=== PATIENT | male | born 1990 ===

== ENCOUNTER 2021-10-17 07:29 | Emergency (ER) | payer SELFPAY ==
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
[2021-10-17 09:04] LABS: Basophils % (Auto) 0.8 % (0.0-1.8); Eosinophils % (Auto) 0.9 % (0.0-4.3); Hematocrit 47.2 % (35.5-45.6); Hemoglobin 16.2 gm/dl (11.8-15.2); Lymphocytes # (Auto) 1.9 K/mm3 (1.2-5.4); Lymphocytes % (Auto) 39.9 % (13.4-35.0); Mean Corpuscular HGB Conc 34 % (32-34); Mean Corpuscular Volume 93 fl (84-94); Monocytes # (Auto) 0.3 K/mm3 (0.0-0.8); Monocytes % (Auto) 7.3 % (0.0-7.3); Platelet Count 177 K/mm3 (140-440); Red Blood Count 5.09 M/mm3 (3.65-5.03); Red Cell Distribution Width 13.2 % (13.2-15.2)
--- NOTE | 2021-10-17 09:18 | XRay Report ---
CHEST 2 VIEWS INDICATION / CLINICAL INFORMATION: cp. COMPARISON: None available. FINDINGS: SUPPORT DEVICES: None. HEART / MEDIASTINUM: No significant abnormality. LUNGS / PLEURA: No significant pulmonary or pleural abnormality. No pneumothorax. ADDITIONAL FINDINGS: No significant additional findings. IMPRESSION: 1. No acute findings. Signer Name: Morales Bhandari Jr, MD Signed: 10/17/2021 9:14 AM Workstation Name: [id number]
[2021-10-17 09:25] LABS: Alanine Aminotransferase 20 units/L (7-56); Albumin 4.7 g/dL (3.9-5); Blood Urea Nitrogen 13 mg/dL (9-20); Calcium 8.9 mg/dL (8.4-10.2); Hemolysis Index 8
[2021-10-17 09:26] LABS: BUN/Creatinine Ratio 22
[2021-10-17 10:47] VITALS: BP 110/64
--- NOTE | 2021-10-18 18:25 | Electrocardiograph Report ---
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
== END 2021-10-17 10:47 | disposition home or self-care (01) ==
LOC: ED 07:29
DX: R42 Dizziness and giddiness (principal); F12.90 Cannabis use, unspecified, uncomplicated; Z90.49 Acquired absence of other specified parts of digestive tract; Z79.899 Other long term (current) drug therapy
CPT/HCPCS: 36415; 71046; 80053; 84484; 85025; 93005; 99283

== ENCOUNTER 2021-10-22 16:54 | Emergency (ER) | payer SELFPAY ==
[2021-10-22 17:22] VITALS: BP 126/59
== END 2021-10-23 01:00 | disposition left against medical advice (07) ==
LOC: ED 16:54
DX: R06.00 Dyspnea, unspecified (principal); M54.9 Dorsalgia, unspecified; Z53.21 Procedure and treatment not carried out due to patient leaving prior to being seen by health care provider

== ENCOUNTER 2021-10-31 22:39 | Emergency (ER) | payer SELFPAY ==
[2021-11-01 08:58] LABS: Amphetamine Screen,Urine Negative; Benzodiazepines Screen,Urine Negative; Cocaine Screen,Urine Negative; Methadone Screen,Urine Negative; Opiate Screen,Urine Negative
[2021-11-01] MEDS ORDERED: hydrOXYzine PAMOATE 25 MG CAP PO ONE (09:41)
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
[2021-11-01 09:44] LABS: Cannabinoid Screen,Urine Positive
[2021-11-01 10:08] VITALS: BP 123/64
--- NOTE | 2021-11-02 21:49 | Electrocardiograph Report ---
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
== END 2021-11-01 10:19 | disposition home or self-care (01) ==
LOC: ED 22:39
DX: F41.9 Anxiety disorder, unspecified (principal); Z90.49 Acquired absence of other specified parts of digestive tract; Z98.890 Other specified postprocedural states; Z79.899 Other long term (current) drug therapy
CPT/HCPCS: 36415; 80307; 84439; 84443; 93005; 99283